=== PATIENT | female | born 1935 | race Caucasian/White ===

== ENCOUNTER 2019-04-25 21:02 | Emergency (ER) | payer MEDICARE, BC ==
[~2019-04-25] VITALS: Ht 167.6 cm; Wt 58.1 kg
[2019-04-25] MEDS ORDERED: ZOLOFT100 MG PO (21:18)
[2019-04-25] MEDS ORDERED: VALACYCLOVIR500 MG PO (21:18)
[2019-04-25] MEDS ORDERED: PROTONIX40 M1 PO (21:18)
[2019-04-25] MEDS ORDERED: ZANTAC300 MG PO (21:18)
[2019-04-25] MEDS ORDERED: PRESERVISION A1 EAC2 PO (21:19)
[2019-04-25] MEDS ORDERED: XIIDRA1 EACH OPHTHALMIC (21:19)
[2019-04-25] MEDS ORDERED: XANAX 0.25 MG0.25 MG PO (21:19)
[2019-04-25] MEDS ORDERED: MEDROLDOSEPACK PO (21:58)
[2019-04-25] MEDS ORDERED: FLUOCINOLONE AC15 GM TOP (21:58)
[2019-04-25 22:21] VITALS: BP 140/80
== END 2019-04-25 22:22 | disposition home or self-care (01) ==
LOC: M.ERS 21:02
DX: S10.86XA Insect bite of other specified part of neck, initial encounter (principal); L29.8 Other pruritus; F41.9 Anxiety disorder, unspecified; F32.9 Major depressive disorder, single episode, unspecified; K21.9 Gastro-esophageal reflux disease without esophagitis; G43.909 Migraine, unspecified, not intractable, without status migrainosus; Z88.8 Allergy status to other drugs, medicaments and biological substances; Z88.0 Allergy status to penicillin; Z91.041 Radiographic dye allergy status; Z86.73 Personal history of transient ischemic attack (TIA), and cerebral infarction without residual deficits; Z90.49 Acquired absence of other specified parts of digestive tract; W57.XXXA Bitten or stung by nonvenomous insect and other nonvenomous arthropods, initial encounter; Y92.89 Other specified places as the place of occurrence of the external cause; Y93.89 Activity, other specified; Y99.8 Other external cause status